=== PATIENT | male | born 1980 | race Caucasian/White ===

== ENCOUNTER 2017-01-15 02:21 | Emergency (ER) | payer OTHER ==
[~2017-01-15] VITALS: Ht 175.3 cm; Wt 77.1 kg
[~2017-01-15 02:21] MED LIST: GABAPENTIN
[2017-01-15] MEDS ORDERED: DEXAMETHASONE SOD PHOSPHATE 4 MG INJ IM ONE (03:00)
[2017-01-15] MEDS ORDERED: DEXAMETHASONE SOD PHOSPHATE 10 MG INJ ONE (03:01)
--- NOTE | 2017-01-15 03:06 | NUR ---
Patient discharged to home in stable conditon. Written and verbal after care instructions given. Patient verbalizes understanding of instructions.
== END 2017-01-15 03:10 | disposition home or self-care (01) ==
LOC: ER 02:38
DX: K64.9 Unspecified hemorrhoids (principal); F17.200 Nicotine dependence, unspecified, uncomplicated
CPT/HCPCS: 96372; 99283; A4663; J1100

== ENCOUNTER 2017-01-16 07:51 | Emergency (ER) | payer OTHER ==
[~2017-01-16] VITALS: Ht 175.3 cm; Wt 77.1 kg
--- NOTE | 2017-01-16 08:43 | NUR ---
pt is in room #3. dr garza evaluated the pt.
[2017-01-16] MEDS ORDERED: KETOROLAC TROMETHAMINE 30 MG INJ IM ONE (09:00)
[2017-01-16] MEDS ORDERED: MORPHINE SULFATE 4 MG/1 ML DISP.SYRIN IM ONE (09:00)
[2017-01-16] MEDS ORDERED: LIDOCAINE VISCUS 2% 15 ML UDC MM ONE (09:00)
[2017-01-16] MEDS ORDERED: MORPHINE SULFATE 4 MG/1 ML DISP.SYRIN ONE (09:06)
[2017-01-16] MEDS ORDERED: KETOROLAC TROMETHAMINE 30 MG INJ ONE (09:06)
[2017-01-16] MEDS ORDERED: LIDOCAINE VISCUS 2% 15 ML UDC ONE (09:07)
--- NOTE | 2017-01-16 09:13 | NUR ---
pt was d/c to home. d/c instructions given to the pt.
[2017-01-16 09:15] VITALS: BP 136/88
== END 2017-01-16 09:15 | disposition home or self-care (01) ==
LOC: ER 07:52
DX: K60.2 Anal fissure, unspecified (principal); K64.9 Unspecified hemorrhoids; F17.200 Nicotine dependence, unspecified, uncomplicated
CPT/HCPCS: 96372 ×2; 99284; A4663; J1885; J2270

== ENCOUNTER 2017-08-30 00:46 | Emergency (ER) | payer OTHER ==
[~2017-08-30] VITALS: Ht 375.9 cm; Wt 77.1 kg
[2017-08-30] MEDS ORDERED: PROMETHAZINE HCL 25 MG/1 ML VIAL IM ONE (01:15)
[2017-08-30] MEDS ORDERED: HYDROMORPHONE 1 MG/1 ML DISP.SYRIN IM ONE (01:15)
[2017-08-30] MEDS ORDERED: HYDROMORPHONE 2 MG/1 ML DISP.SYRIN ONE (01:28)
[2017-08-30] MEDS ORDERED: PROMETHAZINE HCL 25 MG/1 ML VIAL ONE (01:28)
--- NOTE | 2017-08-30 01:32 | NUR ---
Patient discharged to home in stable conditon WITH FRIEND TAKING PATIENT HOME. Written and verbal after care instructions given. Patient verbalizes understanding of instructions. WALKED OUT OF ER WITH NO DISTRESS NOTED
[2017-08-30 01:33] VITALS: BP 120/85
== END 2017-08-30 01:34 | disposition home or self-care (01) ==
LOC: ER 00:48
DX: G89.21 Chronic pain due to trauma (principal); M79.671 Pain in right foot; F17.200 Nicotine dependence, unspecified, uncomplicated
CPT/HCPCS: 96372 ×2; 99284; A4663; J1170; J2550

== ENCOUNTER 2017-09-13 00:48 | Emergency (ER) | payer OTHER ==
[~2017-09-13] VITALS: Ht 172.7 cm; Wt 79.4 kg
[2017-09-13] MEDS ORDERED: KETOROLAC TROMETHAMINE 30 MG INJ IM ONE (01:30)
[2017-09-13] MEDS ORDERED: OXYCODONE/APAP 5-325 MG TABLET PO ONE (01:30)
--- NOTE | 2017-09-13 01:37 | NUR ---
Patient discharged to home in stable conditon. Written and verbal after care instructions given. Patient verbalizes understanding of instructions.
[2017-09-13] MEDS ORDERED: KETOROLAC TROMETHAMINE 30 MG INJ ONE (01:42)
[2017-09-13] MEDS ORDERED: OXYCODONE/APAP 5-325 MG TABLET ONE (01:42)
== END 2017-09-13 01:39 | disposition home or self-care (01) ==
LOC: ER 00:49
DX: L97.419 Non-pressure chronic ulcer of right heel and midfoot with unspecified severity (principal); G89.29 Other chronic pain; F17.200 Nicotine dependence, unspecified, uncomplicated
CPT/HCPCS: 96372; 99283; A4663; J1885

== ENCOUNTER 2017-09-30 01:34 | Emergency (ER) | payer OTHER ==
[~2017-09-30] VITALS: Ht 172.7 cm; Wt 80.7 kg
[2017-09-30] MEDS ORDERED: GABAPENTIN 300 MG CAPSULE PO ONE (02:00)
[2017-09-30] MEDS ORDERED: TRAMADOL HCL 50 MG TABLET PO ONE (02:00)
--- NOTE | 2017-09-30 02:12 | NUR ---
Patient eloped from facility. ER physician notified. Ambulated from ER with stable gait, no visible discomfort noted. patient states " I wanted a shot of something good, i did not really fall, I want to get high bro". Patient proceeds to elope from ER. All belongings with patient. Patient stated " I am walking home, I dont even drive". Educated not to drive a vehicle due to recent Tramadol Intake.
[2017-09-30] MEDS ORDERED: TRAMADOL HCL 50 MG TABLET ONE (02:15)
[2017-09-30] MEDS ORDERED: GABAPENTIN 300 MG CAPSULE ONE (02:15)
== END 2017-09-30 02:16 | disposition left against medical advice (07) ==
LOC: ER 01:34
DX: G89.29 Other chronic pain (principal); M79.661 Pain in right lower leg; M79.662 Pain in left lower leg; Z76.5 Malingerer [conscious simulation]; F17.200 Nicotine dependence, unspecified, uncomplicated
CPT/HCPCS: A4663

== ENCOUNTER 2017-10-15 23:50 | Emergency (ER) | payer OTHER ==
[~2017-10-15] VITALS: Ht 172.7 cm; Wt 80.7 kg
--- NOTE | 2017-10-16 01:38 | NUR ---
CALLED FOR PT NO ANS LWBT
--- NOTE | 2017-10-16 02:30 | NUR ---
Patient re-entered emergency room and was triaged.
[2017-10-16] MEDS ORDERED: HYDROMORPHONE 1 MG/1 ML DISP.SYRIN IM ONE (03:30)
[2017-10-16] MEDS ORDERED: PROMETHAZINE HCL 25 MG/1 ML VIAL IM ONE (03:30)
--- NOTE | 2017-10-16 03:47 | NUR ---
Patient discharged to home in stable conditon. Written and verbal after care instructions given. Patient verbalizes understanding of instructions.
[2017-10-16] MEDS ORDERED: HYDROMORPHONE 1 MG/1 ML DISP.SYRIN ONE (03:48)
[2017-10-16] MEDS ORDERED: PROMETHAZINE HCL 25 MG/1 ML VIAL ONE (03:48)
== END 2017-10-16 01:39 | disposition left against medical advice (07) ==
LOC: ER 10-16 00:01
DX: J11.1 Influenza due to unidentified influenza virus with other respiratory manifestations (principal); R51 Headache; F17.200 Nicotine dependence, unspecified, uncomplicated
CPT/HCPCS: A4663; J1170; J2550

== ENCOUNTER 2017-10-21 11:27 | Emergency (ER) | payer OTHER ==
[~2017-10-21] VITALS: Ht 172.7 cm; Wt 80.7 kg
[2017-10-21] MEDS ORDERED: KETOROLAC TROMETHAMINE 60 MG INJ IM ONE ×2 (12:45→12:53)
== END 2017-10-21 12:41 | disposition home or self-care (01) ==
LOC: ER 11:27
DX: R21 Rash and other nonspecific skin eruption (principal); F17.200 Nicotine dependence, unspecified, uncomplicated; R53.1 Weakness; R06.02 Shortness of breath; R42 Dizziness and giddiness; R61 Generalized hyperhidrosis; W57.XXXA Bitten or stung by nonvenomous insect and other nonvenomous arthropods, initial encounter; Y92.89 Other specified places as the place of occurrence of the external cause; Y93.89 Activity, other specified; Y99.8 Other external cause status
CPT/HCPCS: A4663; J1885

== ENCOUNTER 2017-11-01 11:15 | Emergency (ER) | payer OTHER ==
[~2017-11-01] VITALS: Ht 172.7 cm; Wt 81.6 kg
--- NOTE | 2017-11-01 12:20 | NUR ---
Gaming Commissioner assumes care, patient is for discharge. Patient discharged to home in stable conditon. Written and verbal after care instructions given to patient. Patient verbalizes understanding of instructions.
== END 2017-11-01 12:21 | disposition home or self-care (01) ==
LOC: ER 11:15
DX: K60.2 Anal fissure, unspecified (principal); F17.200 Nicotine dependence, unspecified, uncomplicated
CPT/HCPCS: 99283; A4663

== ENCOUNTER 2017-11-30 07:32 | Emergency (ER) | payer OTHER ==
[~2017-11-30] VITALS: Ht 172.7 cm; Wt 81.6 kg
[2017-11-30] MEDS ORDERED: KETOROLAC TROMETHAMINE 30 MG INJ IM ONE (07:45)
[2017-11-30] MEDS ORDERED: KETOROLAC TROMETHAMINE 30 MG INJ ONE (07:46)
--- NOTE | 2017-11-30 07:51 | NUR ---
mse completed, pt d/c'd home, aci/rx x1 given. opt ambulated w/o diff/took all belongings.
[2017-11-30 07:53] VITALS: BP 141/88
== END 2017-11-30 07:54 | disposition home or self-care (01) ==
LOC: ER 07:32
DX: K60.2 Anal fissure, unspecified (principal); F17.200 Nicotine dependence, unspecified, uncomplicated
CPT/HCPCS: A4663; J1885

== ENCOUNTER 2017-12-15 01:03 | Emergency (ER) | payer OTHER ==
[~2017-12-15] VITALS: Ht 172.7 cm; Wt 81.6 kg
--- NOTE | 2017-12-15 01:15 | NUR ---
PT ARRIVED TO ER AFTER BEING DRIVEN HERE BY FRIEND C/O LOWER BACK PAIN. PT STATES HE WAS LIFTING WEIGHTS AT THE GYM YESTERDAY, WHEN THE PAIN STARTED.
--- NOTE | 2017-12-15 01:17 | NUR ---
NEHA QUINN AT BEDSIDE FOR MSE.
[2017-12-15] MEDS ORDERED: HYDROMORPHONE 2 MG/1 ML DISP.SYRIN ONE (01:21)
[2017-12-15] MEDS ORDERED: ONDANSETRON 4 MG/2 ML VIAL ONE (01:21)
[2017-12-15] MEDS: ONDANSETRON 4 MG/2 ML VIAL IM ONE (01:25)
[2017-12-15] MEDS: HYDROMORPHONE 1 MG/1 ML DISP.SYRIN IM ONE (01:26)
--- NOTE | 2017-12-15 01:27 | NUR ---
Patient discharged to home in stable conditon. Written and verbal after care instructions given. Patient verbalizes understanding of instructions. Pt ambulated from ER w/ steady gait. No distress noted. Pt took all personal belongings.
[2017-12-15 01:29] VITALS: BP 104/60
[2017-12-16] MEDS ORDERED: IBUP200C76 (01:37)
== END 2017-12-15 01:30 | disposition home or self-care (01) ==
LOC: ER 01:03
DX: F17.210 Nicotine dependence, cigarettes, uncomplicated (principal); Z79.899 Other long term (current) drug therapy
CPT/HCPCS: A4663; J1170; J2405

== ENCOUNTER 2017-12-16 00:55 | Emergency (ER) | payer OTHER ==
[~2017-12-16] VITALS: Ht 172.7 cm; Wt 81.6 kg
[2017-12-16] MEDS ORDERED: IBUP200C76 (01:37)
--- NOTE | 2017-12-16 02:08 | NUR ---
Dr. Parra at bedside for MSE.
[2017-12-16] MEDS ORDERED: KETOROLAC TROMETHAMINE 60 MG INJ IM ONE (02:17)
--- NOTE | 2017-12-16 02:18 | NUR ---
Patient reports wants to speak with MD, pain medication at home not working, wants something else. MD notified.
[2017-12-16] MEDS: KETOROLAC TROMETHAMINE 60 MG INJ IM ONE (02:19)
[2017-12-16] MEDS: HYDROMORPHONE HCL 2 MG TABLET PO ONE (03:40)
--- NOTE | 2017-12-16 03:45 | NUR ---
Patient discharged to home in stable conditon by Dr. Parra. Written and verbal after care instructions given. Patient verbalizes understanding of instructions. Patient ambulated out of ER with steady gait, no acute signs of distress, VSS, all belongings taken.
[2017-12-16] MEDS ORDERED: HYDROMORPHONE HCL 2 MG TABLET ONE (03:47)
[2017-12-16 04:28] VITALS: BP 114/79
== END 2017-12-16 03:45 | disposition home or self-care (01) ==
LOC: ER 00:59
DX: M54.9 Dorsalgia, unspecified (principal); F17.210 Nicotine dependence, cigarettes, uncomplicated; Z79.1 Long term (current) use of non-steroidal anti-inflammatories (NSAID); Z79.899 Other long term (current) drug therapy
CPT/HCPCS: A4663; J1885

== ENCOUNTER 2017-12-22 18:12 | Emergency (ER) | payer OTHER ==
[~2017-12-22] VITALS: Ht 172.7 cm; Wt 79.4 kg
[~2017-12-22 18:12] MED LIST changes: -GABAPENTIN; +IBUP200C76
--- NOTE | 2017-12-22 20:01 | NUR ---
Patient discharged to home in stable conditon. Written and verbal after care instructions given. Patient verbalizes understanding of instructions.
== END 2017-12-22 20:02 | disposition home or self-care (01) ==
LOC: ER 18:14
DX: G89.29 Other chronic pain (principal); M54.9 Dorsalgia, unspecified; F17.210 Nicotine dependence, cigarettes, uncomplicated; Z79.1 Long term (current) use of non-steroidal anti-inflammatories (NSAID); Z79.899 Other long term (current) drug therapy
CPT/HCPCS: A4663

== ENCOUNTER 2018-02-14 20:55 | Emergency (ER) | payer OTHER ==
[~2018-02-14] VITALS: Ht 172.7 cm; Wt 81.6 kg
[2018-02-14] MEDS ORDERED: KETOROLAC TROMETHAMINE 30 MG INJ IM ONE (22:45)
[2018-02-14] MEDS ORDERED: KETOROLAC TROMETHAMINE 30 MG INJ ONE (22:51)
--- NOTE | 2018-02-14 23:07 | NUR ---
Patient discharged to home in stable conditon. Written and verbal after care instructions given. Patient verbalizes understanding of instructions. WALKED OUT OF ER WITH NO DISTRESS NOTED
[2018-02-14 23:08] VITALS: BP 128/95
== END 2018-02-14 23:09 | disposition home or self-care (01) ==
LOC: ER 20:57
DX: K04.7 Periapical abscess without sinus (principal); K64.9 Unspecified hemorrhoids; F17.210 Nicotine dependence, cigarettes, uncomplicated; Z79.1 Long term (current) use of non-steroidal anti-inflammatories (NSAID)
CPT/HCPCS: A4663; J1885

== ENCOUNTER 2018-04-23 01:23 | Emergency (ER) | payer OTHER ==
[~2018-04-23] VITALS: Ht 172.7 cm; Wt 80.7 kg
[~2018-04-23 01:23] MED LIST changes: +IBUP-2413; -IBUP200C76
[2018-04-23] MEDS ORDERED: HYDROCODONE/APAP 5-325MG TABLET PO ONE (02:00)
[2018-04-23] MEDS ORDERED: HYDROCODONE/APAP 5-325MG TABLET ONE (02:13)
--- NOTE | 2018-04-23 02:15 | NUR ---
Patient discharged to home in stable conditon. Written and verbal after care instructions given. Patient verbalizes understanding of instructions. Patient able to ambulate unassisted with a steady gait. Patient left with all personal belongings.
[2018-04-23 02:19] VITALS: BP 146/66
== END 2018-04-23 02:15 | disposition home or self-care (01) ==
LOC: ER 01:27
DX: S91.301A Unspecified open wound, right foot, initial encounter (principal); L97.519 Non-pressure chronic ulcer of other part of right foot with unspecified severity; F17.200 Nicotine dependence, unspecified, uncomplicated; Z79.1 Long term (current) use of non-steroidal anti-inflammatories (NSAID); X58.XXXA Exposure to other specified factors, initial encounter; Y93.89 Activity, other specified; Y92.89 Other specified places as the place of occurrence of the external cause; Y99.8 Other external cause status
CPT/HCPCS: A4663

== ENCOUNTER 2018-05-09 00:20 | Emergency (ER) | payer OTHER ==
[~2018-05-09] VITALS: Ht 172.7 cm; Wt 81.6 kg
--- NOTE | 2018-05-09 00:42 | NUR ---
MD CRUZ AT BEDSIDE FOR MSE
[2018-05-09] MEDS ORDERED: HYDROCODONE/APAP 10-325 MG TABLET ONE (00:50)
[2018-05-09 00:54] VITALS: BP 120/84
== END 2018-05-09 00:50 | disposition home or self-care (01) ==
LOC: ER 00:22
DX: L97.411 Non-pressure chronic ulcer of right heel and midfoot limited to breakdown of skin (principal); G89.29 Other chronic pain; M79.671 Pain in right foot; Z76.5 Malingerer [conscious simulation]; F17.200 Nicotine dependence, unspecified, uncomplicated
CPT/HCPCS: A4663

== ENCOUNTER 2018-05-14 03:22 | Emergency (ER) | payer OTHER ==
[~2018-05-14] VITALS: Ht 172.7 cm; Wt 81.6 kg
--- NOTE | 2018-05-14 03:49 | NUR ---
DR DIAZ INTO EVAL PATIENT
--- NOTE | 2018-05-14 04:00 | NUR ---
PATIENT WAS UPSET ABOUT NOT HAVING NARCOTIC MEDS REFILL. PATIENT REFUSED TO SIGN ACI. WALKED OUT OF ER WITH NO DISTRESS NOTED
== END 2018-05-14 04:06 | disposition home or self-care (01) ==
LOC: ER 03:24
DX: G89.29 Other chronic pain (principal); K59.00 Constipation, unspecified; K64.8 Other hemorrhoids; F17.200 Nicotine dependence, unspecified, uncomplicated
CPT/HCPCS: A4663

== ENCOUNTER 2022-10-18 03:06 | Inpatient (IN) | payer OTHER ==
[~2022-10-18] VITALS: Ht 175.3 cm; Wt 79.4 kg
[2022-10-18] MEDS ORDERED: KETOROLAC TROMETHAMINE 60 MG INJ IM ONE ×2 (03:30→03:42)
--- NOTE | 2022-10-18 03:45 | NUR ---
BIB self from home with c/o RLE pain 06/20 that radiates to leg. Informed of plan of care at this time. #20g established in right ac area, blood collected and sent to lab. Medicated for pain as per order, radiology at bedside, MD exam has been done. Patient alert oriented x4, no s/s of any respiratory distress, right foot deformity noted with small open wound noted to plantar aspect of right foot, no drainage noted, swelling noted. side rails up, will continue to monitor.
--- NOTE | 2022-10-18 03:58 | NUR ---
requested and given water at this time.
[2022-10-18 04:07] LABS: POTASSIUM 3.9 mmol/L (3.5-5.1)
[2022-10-18] MEDS ORDERED: SILV50CR32 TP (05:43)
[2022-10-18] MEDS ORDERED: SULF1TAB48 PO (05:43)
[2022-10-18] MEDS ORDERED: HYDR-3972 PO (05:43)
[2022-10-18 05:46] LABS: HEMATOCRIT 35.8 % (36.7-47.1); MEAN CORPUSCULAR HEMOGLOBIN 30.4 uug (23.8-33.4); MEAN CORPUSCULAR VOLUME 92.7 fL (73.0-96.2); PLATELET COUNT (AUTO) 375 K/uL (152-348)
--- NOTE | 2022-10-18 05:55 | NUR ---
Patient is sleeping at this time. MD plan is to admit patient to the hospital.
--- NOTE | 2022-10-18 06:13 | NUR ---
Patient informed he will be admitted to the hospital at this time. COVID swab done and sent to lab.
[2022-10-18] MEDS ORDERED: HYDROCODONE/APAP 10-325 MG TABLET PO PRN (06:30)
[2022-10-18] MEDS ORDERED: REMEDY ESSENTIAL ZINC PASTE 113 GM TP PRN (06:30)
[2022-10-18] MEDS ORDERED: HYDROCODONE/APAP 5-325MG TABLET PO PRN (06:30)
[2022-10-18] MEDS ORDERED: MAGNESIUM HYDROXIDE 30 ML LIQUID UDC PO PRN (06:30)
[2022-10-18] MEDS: PANTOPRAZOLE SODIUM 40 MG TABLET.DR PO SCH (07:01)
[2022-10-18] MEDS ORDERED: PANTOPRAZOLE SODIUM 40 MG TABLET.DR PO ONE (07:01)
--- NOTE | 2022-10-18 07:12 | NUR ---
REPORT GIVEN TO ACCEPTING NURSE ELBERT, PATIENT REMAIS STABLE.
--- NOTE | 2022-10-18 12:30 | NUR ---
Gave pt lunch tray, but pt continued to sleep.
--- NOTE | 2022-10-18 14:38 | NUR ---
Pt apparently eloped with IV line in place -- stated he was just going to his car for a moment, but never returned to ER. Pt left around 1405.
[2022-10-18] MEDS ORDERED: HYDROCODONE/APAP 10-325 MG TABLET ONE (14:58)
[2022-10-18] MEDS ORDERED: VANCOMYCIN IV 1,500 MG in IV DEXTROSE 5% 500 ML IV ONE (15:00)
[2022-10-18] MEDS ORDERED: HYDROMORPHONE 1 MG/1 ML DISP.SYRIN ONE (15:26)
[2022-10-18] MEDS ORDERED: HYDROMORPHONE 1 MG/1 ML DISP.SYRIN IV PRN ×2 (15:30→18:30)
[2022-10-18] MEDS: IV NS 1000 ML 1,000 ML IV PRN (17:41)
--- NOTE | 2022-10-18 18:00 | NUR ---
42 year old male received from er via wheel chair to room 324 for cellulites of the right foot,pt is axox 4.call light with in reach md notified for admission.
[2022-10-18] MEDS: HYDROMORPHONE 1 MG/1 ML DISP.SYRIN IV PRN (19:39)
[2022-10-18 20:32] VITALS: BP 111/51
[2022-10-18] MEDS ORDERED: CEFEPIME HCL 1 G VIAL ONE (20:35)
[2022-10-18] MEDS: CEFEPIME HCL 1 G in IV DEXTROSE 5% 50 ML IV SCH ×2 (21:49→22:00)
[2022-10-18] MEDS: GABAPENTIN 400 MG CAPSULE PO SCH ×2 (22:45→23:38)
[2022-10-18] MEDS ORDERED: HOME MED MISCELLANEOUS PO SCH (23:00)
[2022-10-18] MEDS: VANCOMYCIN IV 1,000 MG in IV DEXTROSE 5% 250 ML IV SCH (23:38)
[2022-10-19] MEDS: HYDROMORPHONE 1 MG/1 ML DISP.SYRIN IV PRN ×3 (00:01→16:15)
[2022-10-19] MEDS ORDERED: GABA800T11 PO (00:07)
[2022-10-19] MEDS ORDERED: BUPR1FIL3 SL (00:07)
[2022-10-19] MEDS: IV NS 1000 ML 1,000 ML IV PRN (03:58)
[2022-10-19 05:30] VITALS: BP 120/72
[2022-10-19] MEDS: CEFEPIME HCL 1 G in IV DEXTROSE 5% 50 ML IV SCH (05:49)
[2022-10-19] MEDS: VANCOMYCIN IV 1,000 MG in IV DEXTROSE 5% 250 ML IV SCH (06:52)
[2022-10-19] MEDS: PANTOPRAZOLE SODIUM 40 MG TABLET.DR PO SCH (06:52)
--- NOTE | 2022-10-19 07:09 | NUR ---
PATIENT INDICATED HIS INTENTION TO VISIT WITH HIS COUSIN ACROSS THE STREET BUT WAS DISCOURAGED AND HE TURNED AROUND AND SAID THAT HE WANTS TO GO TO HIS CAR TO GET SOMETHING AND WAS STILL DISCOURAGED AND ENCOURAGED TO DISCUSS WITH HIS DOCTOR. MEANWHILE PATIENT HAS REFUSED TO PUT ON THE HOSPITAL GOWN. REPORT WAS GIVEN TO THE ON COMING STAFF FOR A CONTINUOUS EXPERT CAR. NO CHANGE IN CONDITION.
[2022-10-19 07:33] LABS: HEMATOCRIT 35.6 % (36.7-47.1); MEAN CORPUSCULAR HEMOGLOBIN 30.5 uug (23.8-33.4); MEAN CORPUSCULAR VOLUME 93.8 fL (73.0-96.2); PLATELET COUNT (AUTO) 395 K/uL (152-348)
[2022-10-19 07:46] LABS: CREATININE 0.8 mg/dL (0.6-1.3); MAGNESIUM 1.7 mg/dL (1.8-2.4); PHOSPHOROUS 3.3 mg/dL (2.5-4.9); POTASSIUM 3.8 mmol/L (3.5-5.1)
[2022-10-19] MEDS: GABAPENTIN 400 MG CAPSULE PO SCH ×3 (09:00→17:18)
[2022-10-19] MEDS ORDERED: MAGNESIUM OXIDE 400 MG TABLET PO ONE (09:15)
[2022-10-19 11:43] VITALS: BP 111/69
--- NOTE | 2022-10-19 11:55 | NUR ---
Social work consult was requested for a patient on [facility] for substance abuse resources. Patient is 42-year-old male admitted to the hospital for osteomyelitis. Patient is alert and oriented X4. Patient presents with depressed mood and congruent affect. Patient states his primary contact worker is his friend, Remington Buchanan ([phone]). Patient states [place] [address], [facility] [address]. 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 Patient states that he has a history of substance abuse but has been sober for a couple of years. There is no toxicology report. SW provided the patient with substance abuse resources for resources to [address] [address] ([phone]), [facility] [address] [facility] [address] ([phone]), and [address] [address] ([phone]). Patient denies history of psychiatric diagnosis. Patient denies suicidal or homicidal ideation. Patient states his plan for discharge is to go home to [id number] [place] [address] [address] [address].
--- NOTE | 2022-10-19 12:47 | NUR ---
WOUND CARE CONSULT: PT PRESENTS WITH PLANTAR FOOT WOUND AND SCARRING TO RT FOOT, PRESENT ON ADMISSION. DR FUNG CALLED FOR DPM CONSULT. IN AGREEMENT WITH PLAN OF CARE.
[2022-10-19] MEDS: ONDANSETRON 4 MG/2 ML VIAL IV PRN ×2 (12:49→20:39)
[2022-10-19] MEDS: CEFEPIME HCL 2 G in IV DEXTROSE 5% 100 ML IV SCH ×2 (13:29→21:53)
[2022-10-19] MEDS: ACETAMINOPHEN 325 MG TABLET PO PRN ×2 (15:07→23:17)
[2022-10-19] MEDS: VANCOMYCIN IV 1,250 MG in IV DEXTROSE 5% 250 ML IV SCH ×2 (16:15→23:18)
[2022-10-19 16:24] VITALS: BP 110/71
[2022-10-19 20:12] VITALS: BP 106/50
[2022-10-19] MEDS: BUPRENORPHINE SL SCH (20:39)
[2022-10-19] MEDS: [UNRECOGNIZED DRUG - OTHER] SL SCH (20:39)
[2022-10-19] MEDS: NALOXONE SL SCH (20:39)
[2022-10-19] MEDS: TEMAZEPAM 15 MG CAPSULE PO PRN (23:18)
[2022-10-20 04:02] VITALS: BP 106/57
[2022-10-20] MEDS: ONDANSETRON 4 MG/2 ML VIAL IV PRN ×2 (05:45→22:46)
[2022-10-20] MEDS: ACETAMINOPHEN 325 MG TABLET PO PRN ×3 (05:45→22:43)
[2022-10-20] MEDS: CEFEPIME HCL 2 G in IV DEXTROSE 5% 100 ML IV SCH ×3 (06:38→21:26)
[2022-10-20] MEDS: PANTOPRAZOLE SODIUM 40 MG TABLET.DR PO SCH (06:38)
--- NOTE | 2022-10-20 07:35 | NUR ---
AAOx4. IV antibiotics running adequately on YANN midline. No signs of distress or c/o pain at this time. Is on RA. Tylenol given for JOYNER and zofran was given for occasional nausea/vomiting. Medications were effective at the time. Safety and comfort measures enforced and maintained.
[2022-10-20] MEDS: GABAPENTIN 400 MG CAPSULE PO SCH ×3 (08:22→17:10)
[2022-10-20] MEDS: VANCOMYCIN IV 1,250 MG in IV DEXTROSE 5% 250 ML IV SCH ×2 (08:22→16:17)
[2022-10-20 08:30] LABS: HEMATOCRIT 34.7 % (36.7-47.1); MEAN CORPUSCULAR HEMOGLOBIN 30.4 uug (23.8-33.4); PLATELET COUNT (AUTO) 401 K/uL (152-348)
[2022-10-20 09:13] LABS: CARBON DIOXIDE 28 mmol/L (21-32); CHLORIDE 104 mmol/L (98-107); CREATININE 0.6 mg/dL (0.6-1.3); GLUCOSE 171 mg/dL (74-106); MAGNESIUM 2.1 mg/dL (1.8-2.4); POTASSIUM 3.5 mmol/L (3.5-5.1); UREA NITROGEN, BLOOD 6 mg/dL (7-18)
[2022-10-20] MEDS: [UNRECOGNIZED DRUG - OTHER] SL SCH (09:59)
[2022-10-20] MEDS: BUPRENORPHINE SL SCH (09:59)
[2022-10-20] MEDS: NALOXONE SL SCH (09:59)
[2022-10-20] MEDS: NICOTINE 21 MG/24HR PATCH TD SCH (15:02)
[2022-10-20] MEDS ORDERED: METOCLOPRAMIDE HCL 10 MG/2 ML VIAL IV PRN (19:30)
[2022-10-20 20:27] VITALS: BP 104/71
--- NOTE | 2022-10-20 21:05 | NUR ---
Received patient resting in bed comfortably. No signs of distress noted at this time or c/o of pain. IVF infusing adequately. Wound dressing was done for right plantar. Dressing change was followed and patient stated "I feel a lot better." Safety and comfort measures enforced.
[2022-10-20] MEDS: VANCOMYCIN IV 1,000 MG in IV DEXTROSE 5% 250 ML IV SCH (23:00)
[2022-10-20] MEDS: IV NS 1000 ML 1,000 ML IV PRN (23:29)
--- NOTE | 2022-10-20 23:30 | NUR ---
Assumed care of patient from RN Danielle. Patient AAOx4. In no apparent distress. Denies any pain or SOB at this time. Right upper arm midline intact and patent. Vanco antibiotic infusing at this time. Needs assessed and attended to. Safety measure initiated and call light within reached.
[2022-10-21] MEDS: TEMAZEPAM 15 MG CAPSULE PO PRN (00:54)
--- NOTE | 2022-10-21 04:54 | NUR ---
Patient AAOx4. Nicotine patch on right arm intact. In no acute distress. Denies any SOB. Right upper arm midline intact and patent. No adverse reaction noted form IV antibiotic. Needs attended to and met. Safety measure maintained and call light within reached.
[2022-10-21 05:01] VITALS: BP 127/67
[2022-10-21] MEDS: ACETAMINOPHEN 325 MG TABLET PO PRN ×2 (06:02→13:07)
[2022-10-21] MEDS: PANTOPRAZOLE SODIUM 40 MG TABLET.DR PO SCH (06:02)
[2022-10-21] MEDS: CEFEPIME HCL 2 G in IV DEXTROSE 5% 100 ML IV SCH (06:02)
[2022-10-21 07:25] LABS: HEMATOCRIT 35.6 % (36.7-47.1); MEAN CORPUSCULAR HEMOGLOBIN 30.8 uug (23.8-33.4); MEAN CORPUSCULAR VOLUME 93.9 fL (73.0-96.2); PLATELET COUNT (AUTO) 412 K/uL (152-348)
[2022-10-21 08:00] VITALS: BP 132/72
--- NOTE | 2022-10-21 08:00 | NUR ---
Awake, alert, oriented x 4. Breakfast served.
[2022-10-21] MEDS: GABAPENTIN 400 MG CAPSULE PO SCH ×2 (08:57→13:07)
[2022-10-21] MEDS: VANCOMYCIN IV 1,000 MG in IV DEXTROSE 5% 250 ML IV SCH (08:57)
[2022-10-21] MEDS: NALOXONE SL SCH (08:58)
[2022-10-21] MEDS: BUPRENORPHINE SL SCH (08:58)
[2022-10-21] MEDS: [UNRECOGNIZED DRUG - OTHER] SL SCH (08:58)
[2022-10-21] MEDS ORDERED: THERAHONEY GEL 1.5 OZ TUBE TOP SCH (09:00)
[2022-10-21] MEDS: NICOTINE 21 MG/24HR PATCH TD SCH (09:40)
[2022-10-21 12:00] VITALS: BP 119/78
[2022-10-21] MEDS ORDERED: SULF1TAB48 PO (12:14)
[2022-10-21] MEDS ORDERED: CEFEPIME HCL 2 G in IV DEXTROSE 5% 100 ML IV SCH (15:00)
--- NOTE | 2022-10-21 16:31 | NUR ---
With discharge order to home. Saline lock removed. DC instruction given, verbalized understanding. Went home per ambulatory per request in fair condition, not in distress, afebrile.
== END 2022-10-21 16:30 | disposition home or self-care (01) | DRG 383 ==
LOC: ER 03:06 → MEDSURG3 17:15 → MED 10-21 00:37
PROVIDERS: ADMIT Nurse Practitioner Acute Care; ATTEND Nurse Practitioner Acute Care
PROC: B546ZZA Ultrasonography of Right Subclavian Vein, Guidance (ICD-10-PCS; principal; 2022-10-19)
PROC: 05H533Z Insertion of Infusion Device into Right Subclavian Vein, Percutaneous Approach (ICD-10-PCS; principal; 2022-10-19)
DX: L03.115 Cellulitis of right lower limb (principal); S91.301A Unspecified open wound, right foot, initial encounter; G89.4 Chronic pain syndrome; Z89.421 Acquired absence of other right toe(s); Z20.822 Contact with and (suspected) exposure to COVID-19; D72.829 Elevated white blood cell count, unspecified; V89.2XXS Person injured in unspecified motor-vehicle accident, traffic, sequela; F19.11 Other psychoactive substance abuse, in remission; X58.XXXA Exposure to other specified factors, initial encounter; Y93.9 Activity, unspecified; Y92.009 Unspecified place in unspecified non-institutional (private) residence as the place of occurrence of the external cause
CPT/HCPCS: 36415; 73630; 83735; 84100; 85025; 85651; 87040; A4663; G0378; J0692; J1170; J1885; J2405; J3370; J7040; J7050; J7060

== ENCOUNTER 2022-11-13 00:16 | Emergency (ER) | payer OTHER ==
[~2022-11-13] VITALS: Ht 172.7 cm; Wt 65.8 kg
[~2022-11-13 00:16] MED LIST changes: +BUPR1FIL3 SL; +GABA800T11 PO; +SILV50CR32 TP; +SULF1TAB48 PO
--- NOTE | 2022-11-13 00:55 | NUR ---
Patient A/O 4. NAD noted.
[2022-11-13 00:56] LABS: HEMATOCRIT 40.2 % (36.7-47.1); MEAN CORPUSCULAR HEMOGLOBIN 31.2 uug (23.8-33.4); MEAN CORPUSCULAR VOLUME 92.2 fL (73.0-96.2); PLATELET COUNT (AUTO) 352 K/uL (152-348)
--- NOTE | 2022-11-13 00:59 | NUR ---
X-ray at bedside.
[2022-11-13 01:07] LABS: CARBON DIOXIDE 28 mmol/L (21-32); CHLORIDE 102 mmol/L (98-107); CREATININE 1.2 mg/dL (0.6-1.3); GLUCOSE 113 mg/dL (74-106); POTASSIUM 3.8 mmol/L (3.5-5.1); UREA NITROGEN, BLOOD 6 mg/dL (7-18)
[2022-11-13 01:16] LABS: ALANINE AMINOTRANSFERASE 26 U/L (16-63); ALKALINE PHOSPHATASE 83 U/L (50-136); ASPARTATE AMINOTRANSFERASE 21 U/L (15-37); BILIRUBIN,DIRECT < 0.1 mg/dL (0.0-0.2); BILIRUBIN,TOTAL 0.2 mg/dL (0.2-1.0); TOTAL PROTEIN, SERUM 7.3 g/dL (6.4-8.2)
--- NOTE | 2022-11-13 01:20 | NUR ---
IV taken out and bandage placed over are. No meds or fluid were given.
--- NOTE | 2022-11-13 01:30 | NUR ---
Patient discharged to home in stable condition. A/O x4. Nad noted. Ambulatory with a steady gait. All belongings with patient. Written and verbal after care instructions given. Patient verbalizes understanding of instructions. Stressed follow up or return to ER for worsening s/s.
[2022-11-13 01:34] VITALS: BP 127/67
== END 2022-11-13 01:31 | disposition home or self-care (01) ==
LOC: ER 00:20
DX: R07.9 Chest pain, unspecified (principal); G89.29 Other chronic pain; M79.673 Pain in unspecified foot
CPT/HCPCS: 36415; 71045; 84484; 85025; 93005; A4663

== ENCOUNTER 2024-02-15 04:35 | Emergency (ER) | payer OTHER ==
[~2024-02-15] VITALS: Ht 172.7 cm; Wt 71.7 kg
[~2024-02-15 04:35] MED LIST changes: +CYCL10TA9 PO
[2024-02-15] MEDS ORDERED: KETOROLAC TROMETHAMINE 30 MG INJ ONE (04:55)
[2024-02-15] MEDS ORDERED: METOCLOPRAMIDE HCL 10 MG/2 ML VIAL ONE (04:56)
[2024-02-15] MEDS: KETOROLAC TROMETHAMINE 30 MG INJ IM ONE (05:00)
[2024-02-15] MEDS ORDERED: METOCLOPRAMIDE HCL 10 MG TABLET PO ONE (05:00)
[2024-02-15] MEDS: METOCLOPRAMIDE HCL 10 MG/2 ML VIAL IM ONE (05:02)
[2024-02-15 05:19] VITALS: BP 103/59; O2SAT 96
== END 2024-02-15 05:19 | disposition home or self-care (01) ==
LOC: ER 04:38
DX: R51.9 Headache, unspecified (principal); F17.200 Nicotine dependence, unspecified, uncomplicated; Z98.890 Other specified postprocedural states; Z79.899 Other long term (current) drug therapy
CPT/HCPCS: 99284; 96372 ×2; J1885; J2765; A4606; A4663

== ENCOUNTER 2024-12-10 19:24 | Emergency (ER) | payer OTHER ==
[~2024-12-10] VITALS: Ht 172.7 cm; Wt 77.1 kg
[2024-12-10 19:28] VITALS: O2SAT 95
[2024-12-10] MEDS ORDERED: KETOROLAC TROMETHAMINE 30 MG INJ ONE (20:39)
[2024-12-10] MEDS: KETOROLAC TROMETHAMINE 30 MG INJ IM ONE (20:47)
== END 2024-12-10 22:03 | disposition left against medical advice (07) ==
LOC: ER 19:29
DX: S89.81XA Other specified injuries of right lower leg, initial encounter (principal); S59.801A Other specified injuries of right elbow, initial encounter; G89.29 Other chronic pain; M25.521 Pain in right elbow; M25.532 Pain in left wrist; M25.561 Pain in right knee; M79.642 Pain in left hand; M79.661 Pain in right lower leg; F17.200 Nicotine dependence, unspecified, uncomplicated; Z60.2 Problems related to living alone; Z79.899 Other long term (current) drug therapy; V43.52XA Car driver injured in collision with other type car in traffic accident, initial encounter; Y93.89 Activity, other specified; Y92.488 Other paved roadways as the place of occurrence of the external cause; Y99.8 Other external cause status
CPT/HCPCS: 99284; 73070; 73560; 73590; 96372; J1885; A4606; A4663